=== PATIENT | female | born 1945 | race Caucasian/White ===

== ENCOUNTER 2022-07-01 06:19 | Emergency (ER) | payer MEDICAID, OTHER ==
[~2022-07-01] VITALS: Ht 154.9 cm; Wt 70.0 kg
[~2022-07-01 06:19] MED LIST: ALBU8.5H8 IH; DIPH-1139 PO; METH4TAB PO
[2022-07-01] MEDS ORDERED: DiphenhydrAMINE HCL 25 MG CAPSULE PO ONE (06:45)
[2022-07-01] MEDS ORDERED: FAMOTIDINE 20 MG TABLET PO ONE (06:45)
[2022-07-01] MEDS ORDERED: DEXAMETHASONE 4 MG TABLET PO ONE (08:15)
[2022-07-01 09:38] VITALS: BP 125/63
== END 2022-07-01 10:08 | disposition home or self-care (01) ==
LOC: EMS 06:20
DX: T78.1XXA Other adverse food reactions, not elsewhere classified, initial encounter (principal); R21 Rash and other nonspecific skin eruption; R73.03 Prediabetes; Z90.710 Acquired absence of both cervix and uterus; Z98.890 Other specified postprocedural states; X58.XXXA Exposure to other specified factors, initial encounter
CPT/HCPCS: 99284; J8540; Z7502; Z7610